=== PATIENT | female | born 1980 | race Caucasian/White ===

== ENCOUNTER 2020-05-06 12:06 | Outpatient (REF) | payer OTHER, SELFPAY ==
[2020-05-06 13:48] LABS: MANUAL DIFF FLAG NO
[2020-05-06 13:57] LABS: Basophils Percent Auto 0.6 % (0-2); Eosinophils Percent Auto 0.4 % (0-4); Hemoglobin 13.6 g/dl (12.0-16.0); Imm Gran Abs Auto 0.03 X10*3/uL (0.00-0.03); Imm Gran Pct Auto 0.4 % (0.0-0.4); Lymphocytes Absolute Auto 1.9 X10*3/uL (1.2-4.9); Lymphocytes Percent Auto 27.1 % (20-40); Mean Corpuscular HGB Conc 32.4 g/dl (31.0-35.0); Mean Corpuscular Hemoglobin 30.9 pg (27.0-33.0); Mean Corpuscular Volume 95.5 fL (80-98); Mean Platelet Volume 10.6 fL (9.4-12.3); Monocytes Absolute Auto 0.4 X10*3/uL (0.1-1.2); Monocytes Percent Auto 6.3 % (2-11); Neutrophils Absolute Auto 4.5 X10*3/uL (2.0-8.3); Neutrophils Percent Auto 65.2 % (45-73); Platelet Count 252 X10*3/uL (160-400); Red Cell Distribution Width 12.4 % (11.0-16.0); White Blood Count 6.9 X10*3/uL (4.8-10.8)
[2020-05-06 14:40] LABS: Alanine Aminotransferase 17 U/L (0-31); Albumin Level 4.6 g/dL (3.5-5.0); Alkaline Phosphatase 46 U/L (39-117); Anion Gap 13 (12-20); Aspartate Amino Transferase 20 U/L (5-31); Bilirubin Total 0.6 mg/dL (0.0-1.0); Blood Urea Nitrogen 19 mg/dL (9-16); C Reactive Protein < 0.02 mg/dL (< or = 0.50); Calcium 9.1 mg/dL (8.4-10.2); Carbon Dioxide 27 mmol/L (22-29); Chloride 104 mmol/L (96-108); Estimated Glomerular Filt Rate > 60; Glucose Random 86 mg/dL (60-115); Potassium 4.7 mmol/l (3.3-5.1); Sodium 139 mmol/L (135-145); Total Protein 7.4 g/dL (6.5-8.0)
[2020-05-06 15:15] LABS: Erythrocyte Sedimentation Rate 2 MM/HR (0-20)
== END 2020-05-06 12:07 | disposition home or self-care (01) ==
LOC: HO.LAB 12:06
PROVIDERS: PCP Internal Medicine; Visit Provider Student in an Organized Health Care Education/Training Program
DX: M45.9 Ankylosing spondylitis of unspecified sites in spine (principal); I73.00 Raynaud's syndrome without gangrene
CPT/HCPCS: 36415; 80053; 85025; 85652; 86140

== ENCOUNTER → 2020-07-23 11:01 | Outpatient (BNVA) | payer OTHER, SELFPAY | PROVIDERS: PCP Internal Medicine; Referring Provider Internal Medicine; Visit Provider Student in an Organized Health Care Education/Training Program | DX: Z76.89 Persons encountering health services in other specified circumstances (principal) ==

== ENCOUNTER 2020-08-02 11:55 | Outpatient (REF) | payer OTHER, SELFPAY ==
--- NOTE | 2020-08-02 11:57 | MR_ITS ---
EXAMINATION: MR CERVICAL SPINE WITHOUT CONTRAST CLINICAL INFORMATION: Ankylosing spondylitis. Self-reported bilateral arm pain COMPARISON: Cervical spine radiographs 03/20/2020. MRI pelvis 11/06/2019. MRI brain 05/07/2015. TECHNIQUE: MRI of the cervical spine was obtained using routine sequences without contrast. FINDINGS: VERTEBRAL BODIES AND PARASPINAL SOFT TISSUES: Mild straightening of the normal cervical lordosis is noted. Vertebral body height and marrow signal are within normal limits aside from minimal anterior endplate discogenic marrow signal changes related to mild anterior endplate osteophytosis. Mild mucosal thickening and retained secretions within the sphenoid sinus are partially visualized. CERVICOMEDULLARY JUNCTION AND VISUALIZED POSTERIOR FOSSA: Normal. SPINAL LEVELS: C2-C3: Normal. Normal intervertebral discs. No central or foraminal stenoses. C3-C4: No significant central or foraminal stenoses. Minimal central disc protrusion. C4-C5: No significant central or foraminal stenoses. Minimal central disc protrusion. C5-C6: Mild central stenosis secondary to mild central disc-osteophyte complex with mild effacement of the ventral thecal sac CSF space. No significant foraminal stenoses. C6-C7: Mild central stenosis secondary to a mild posterior broad-based disc-osteophyte complex partially effacing the ventral thecal sac CSF space. No significant foraminal stenoses. C7-T1: Normal. Normal intervertebral disc. No central or foraminal stenoses. MR/MR cervical spine wo con IMPRESSION: 1. Mild multilevel chronic spondylosis of the cervical spine without associated nerve root impingement or significant central or foraminal stenoses. 2. No specific evidence of inflammatory arthropathy of the cervical spine.
== END 2020-08-02 11:56 | disposition home or self-care (01) ==
LOC: HO.MRI 11:55
PROVIDERS: Visit Provider Student in an Organized Health Care Education/Training Program
DX: M45.9 Ankylosing spondylitis of unspecified sites in spine (principal)
CPT/HCPCS: 72141

== ENCOUNTER 2020-08-27 09:52 | Outpatient (RCR) | payer OTHER, SELFPAY ==
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
--- NOTE | 2020-11-28 14:47 | MHC.PT.DC ---
[facility] [place] Office [place] Office [place] Office [address] Rafi Lea 140 [facility] [phone] F: [phone] F: [phone] F: [phone] F: [phone] Physical Therapy Discharge Report Diagnosis: This is a 40 yo female presenting to skilled PT with a script for cervicalgia. Date of Surgery: Date of Evaluation: 08/27/20 Date of Discharge: 08/30/20 Treatments to Date: 1 Cancellations to Date: 0 No Shows to Date: 0 Discharge Status: Patient Elected to Stop Discharge Summary: Pt elected not to pursue further appointments at this time. Electronically signed by: Mando Denise PT Please sign and return to therapist. Thank you for your referral.
== END 2020-11-28 15:01 | disposition home or self-care (01) ==
LOC: HO.PTCHIC 09:52
PROVIDERS: PCP Internal Medicine; Visit Provider Student in an Organized Health Care Education/Training Program
DX: M54.2 Cervicalgia (principal)
CPT/HCPCS: 97110; 97162

== ENCOUNTER 2020-10-22 12:24 | Outpatient (REF) | payer OTHER, SELFPAY | END 2020-10-22 12:25 | disposition home or self-care (01) | LOC: HO.LAB 12:24 | PROVIDERS: PCP Internal Medicine; Visit Provider Student in an Organized Health Care Education/Training Program | DX: Z13.89 Encounter for screening for other disorder (principal) ==

== ENCOUNTER 2020-11-04 11:55 | Outpatient (REF) | payer OTHER, SELFPAY ==
[2020-11-04 12:34] LABS: MANUAL DIFF FLAG NO
[2020-11-04 12:44] LABS: Basophils Absolute Auto 0.1 X10*3/uL (0.0-0.2); Basophils Percent Auto 0.7 % (0-2); Eosinophils Absolute Auto 0.1 X10*3/uL (0.0-0.4); Eosinophils Percent Auto 1.5 % (0-4); Hematocrit 37.9 % (37-47); Hemoglobin 12.5 g/dl (12.0-16.0); Imm Gran Abs Auto 0.01 X10*3/uL (0.00-0.03); Imm Gran Pct Auto 0.1 % (0.0-0.4); Lymphocytes Percent Auto 28.2 % (20-40); Mean Corpuscular Hemoglobin 31.4 pg (27.0-33.0); Mean Corpuscular Volume 95.2 fL (80-98); Mean Platelet Volume 10.4 fL (9.4-12.3); Monocytes Absolute Auto 0.6 X10*3/uL (0.1-1.2); Monocytes Percent Auto 7.9 % (2-11); Neutrophils Absolute Auto 4.4 X10*3/uL (2.0-8.3); Neutrophils Percent Auto 61.6 % (45-73); Platelet Count 239 X10*3/uL (160-400); Red Blood Count 3.98 X10*6/uL (4.20-5.50); Red Cell Distribution Width 12.4 % (11.0-16.0); White Blood Count 7.1 X10*3/uL (4.8-10.8)
[2020-11-04 13:01] LABS: Alanine Aminotransferase 20 U/L (0-31); Albumin Level 4.3 g/dL (3.5-5.0); Alkaline Phosphatase 47 U/L (39-117); Anion Gap 13 (12-20); Aspartate Amino Transferase 20 U/L (5-31); Bilirubin Total 0.7 mg/dL (0.0-1.0); Blood Urea Nitrogen 12 mg/dL (9-16); C Reactive Protein < 0.02 mg/dL (< or = 0.50); Carbon Dioxide 26 mmol/L (22-29); Chloride 104 mmol/L (96-108); Estimated Glomerular Filt Rate > 60; Glucose Random 89 mg/dL (60-115); Potassium 4.5 mmol/L (3.3-5.1); Sodium 138 mmol/L (135-145); Total Protein 6.6 g/dL (6.5-8.0)
[2020-11-04 13:33] LABS: Erythrocyte Sedimentation Rate 2 MM/HR (0-20)
== END 2020-11-04 11:56 | disposition home or self-care (01) ==
LOC: HO.LAB 11:55
PROVIDERS: PCP Internal Medicine; Visit Provider Student in an Organized Health Care Education/Training Program
DX: M45.9 Ankylosing spondylitis of unspecified sites in spine (principal)
CPT/HCPCS: 36415; 80053; 85025; 85652; 86140

== ENCOUNTER 2021-05-29 17:00 | Outpatient (RCR) | payer OTHER, SELFPAY ==
--- NOTE | 2021-01-01 17:20 | MHC.PT.EP ---
[facility] [place] Office [place] Office [place] Office [address] [phone] F: [phone] F: [phone] F: [phone] F: [phone] Physical Therapy Plan of Care Date of Evaluation: Date of Surgery: Diagnosis: Cervicalgia. Assessment: Pt is a 40 y/o female with ankylosing spondylosis referred to PT for eval and treat of cervical who presents with signs and Sx consistent with Dx resulting in decreased tolerance for reading, driving as well as disturbed sleep, and frequent WIGGINS secondary to decreased posture, decreased cervical strength, increased accessory tissue tension, decreased cervical ROM, and pain. Pt is deemed an appropriate candidate to receive skilled PT in order to address her physical limitations to improve her functional ability. Frequency and Duration: The patient will be seen 2 x / wk x 5 wks. Short Term Goals: initiate HEP with evidence of compliance. Improve baseline pain with activity to < 5/10 initial 7-8/10. Senior Living Goals: I with HEP. Pt will improve her restless sleep d/t pain by 50%. Pt will improve Deep Neck Flexor endurance from 5 seconds to > 20 seconds. Pt will report at most only slight pain with driving; initial moderate pain. Treatment Plan: Modalities to reduce pain, spasms and effusion. Manual therapy to restore motion and function. Therapeutic exercise to improve strength and flexibility. Neuromuscular re-education for posture and balance. Therapeutic activities to return to functional activities of daily living. Electronically signed by: Lamont Turpin PT. Please sign and return to therapist. Thank you for your referral.
--- NOTE | 2021-07-14 09:52 | MHC.PT.OD ---
[facility] [place] Office [place] Office [place] Office [address] Rafi Lea [address] [phone] F: [phone] F: [phone] F: [phone] F: [phone] Physical Therapy Daily Note Diagnosis: Cervicalgia. Date of Surgery: Date of Evaluation: 12/18/20 Date of Treatment: 05/29/21 Treatments to Date: 19 Cancellations to Date: No Shows to Date: Authorized Visits: Insurance End Date: Precautions/ Contraindications: Subjective: Pt reported some c/s stiffness and achy L/S pain Pain Score and Location: 8 c/s Objective Flowsheet: Tests & Measures C-Spine ROM: flex 45 deg ext 30 deg SB: R 40 deg; L 25 deg Rot: R 61 deg; L 53 deg DNF - 5 sec - reports feeling unstable Increased tissue tension noted L > R UT, MT and B suboccipitals. Exercises UB x 10 min level 2 5/5 Chin tucks x 10 x2 reps; rows, sh ext x 30 reps ea G TB Supine LTRS over PBALL: x 30. HSS regular and lateral x 30 sec x 3 ea. PT noted Pt using trunk flexion to retrieve items from floor. initiated lifting training ideas. STM, TPR UT, SCM, scalenes, rhomboid muscle R HS 50 degrees, R PSIS inf, ASIS sup, hypo, R post rotated, squish R, R L.E shorter supine. R hip weakness. Reviewed anatomy of L/S, taped R post rotation into ant Modalities ES 4 channel UT, Rhomboid muscles in sitting MH 10.5 intensity Assessment: Annabel has made some improvement in her functional ability and has gained some skills to help manage her chronic pain and has performed her program with good carryover. She has been educated further on her chronic progressive arthritic disease and on continuing her HEP in a pain limited capacity to her tolerance. PT Plan: DC in 1-2 visits: Streamline HEP Short Term Goals: initiate HEP with evidence of compliance. Improve baseline pain with activity to < 5/10 initial 7-8/10. Fdc Goals: I with HEP. Pt will improve her restless sleep d/t pain by 50%. Pt will improve Deep Neck Flexor endurance from 5 seconds to > 20 seconds. Pt will report at most only slight pain with driving; initial moderate pain. Electronically signed by: Lili Harden skiver hand
== END 2021-07-14 09:53 | disposition home or self-care (01) ==
LOC: HO.PTCHIC 17:00
PROVIDERS: PCP Internal Medicine; Visit Provider Student in an Organized Health Care Education/Training Program
DX: M54.2 Cervicalgia (principal)
CPT/HCPCS: 97014; 97110; 97140; 97162

== ENCOUNTER 2023-07-01 12:51 | Outpatient (AMB) | payer BC, SELFPAY ==
[2023-07-01 12:53] VITALS: BP 96/64; PULSE 69; O2SAT 99; BMI 18.9
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
== END 2023-07-01 13:55 | disposition home or self-care (01) ==
PROVIDERS: PCP Internal Medicine; Visit Provider Internal Medicine
DX: Z00.00 Encounter for general adult medical examination without abnormal findings (principal); Z92.89 Personal history of other medical treatment; M54.50 Low back pain, unspecified; G89.29 Other chronic pain
CPT/HCPCS: 99396

== ENCOUNTER 2024-10-13 11:52 | Outpatient (AMB) | payer OTHER, SELFPAY ==
[2024-10-13 11:54] VITALS: BP 102/66; PULSE 74; RESP 18; TEMP 37.1; O2SAT 97
--- NOTE | 2024-10-13 11:54 | A.OFFPC_ITS ---
Vital Signs 10/13/24 11:54 Height 5 ft 6 in Weight 124 lb BMI 20.0 BP 102/66 Blood Pressure Location Rt brachial Position Sitting Respiration 18 Pulse 74 Pulse Source Pulse Oximeter Temp 98.7 F Temp Source Oral Pulse Oximetry (%) 97 Oxygen Delivery Method Room Air Intake Visit Reasons: Annual PE Intake Note: Pt is here today for PE. Allergies adalimumab [Humira] Allergy (Unknown, Verified 10/13/24 11:59) hives etanercept [Enbrel] Allergy (Unknown, Verified 10/13/24 11:59) rash gabapentin Allergy (Unknown, Verified 10/13/24 11:59) Palpitations golimumab [Simponi] Allergy (Unknown, Verified 10/13/24 11:59) hives food sensitivities-numerous Allergy (Intermediate, Uncoded 10/13/24 11:59) rash Medication List - Last Reconciled 10/13/24 by Evelyne Hines MD multivitamin 1 tab PO DAILY Tobacco use date assessed: 10/13/24 Dental Screening Dental Screen Date: 10/13/24 Did you have a dental visit in the last 12 months?: Yes Did you have a dental problem in the last 6 months where you did not have access to dental care?: No Was dental information given to patient?: Patient has dentist HPI Annual PE HPI Details Pt presents for PE. PFSH Medical History Postherpetic neuralgia Antiphospholipid antibody positive HLA B27 positive Seasonal allergies Ankylosing spondylitis Raynauds syndrome Surgical History H/O colonoscopy History of esophagogastroduodenoscopy (EGD) Family History Father Hyperlipidemia Substance use disorder Mother Vertigo GERD (gastroesophageal reflux disease) Glaucoma Sister Substance use disorder Paternal Grandfather Colon cancer Brother No problems noted. Son No problems noted. Daughter No problems noted. Daughter No problems noted. Social History Household Members Other:: , 13 y/o twin daughters Housing: House Alcohol intake: current Alcohol intake frequency: holidays/special occasions only Patient Tobacco Use Status: Never used Tobacco e-Cigarette/Vaping Use: Currently Using Substance Use Type: Marijuana service: No Current occupational status: employed Cognitive needs: No Hearing needs: No Vision needs: Yes Questionnaire PHQ-9 Over the last 2 weeks, how often have you been bothered by any of the following problems? 1. Little interest or pleasure in doing things: not at all 2. Feeling down, depressed, or hopeless: not at all 3. Trouble falling or staying asleep, or sleeping too much: several days 4. Feeling tired or having little energy: not at all 5. Poor appetite or overeating: several days 6. Feeling bad about yourself - or that you are a failure or have let yourself or your family down: not at all 7. Trouble concentrating on things, such as reading the newspaper or watching television: several days 8. Moving or speaking so slowly that other people could have noticed. Or the opposite - being so fidgety or restless that you have been moving around a lot more than usual: several days 9. Thoughts that you would be better off or of hurting yourself in some way: not at all Total score: 4 Depression Screening Interpretation: Negative Depression Screening Done: Yes 60122 - PHQ-9 Billing: Yes Source: Developed by Drs. Noam Samuel, Smita Leary, [place] and colleagues, with an educational sarah from [employer]. Thrive Questionnaire Date Thrive assessed: 10/13/24 I am a: Patient What is your living situation today?: I have a steady place to live Within the past 12 months, did the food you bought not last and you didn't have the money to get more?: Never true Within the past 12 months, did you worry whether your food would run out before you got money to buy more?: Never true Do you have trouble paying for medicines?: No Do you have trouble getting transportation to medical appointments?: No Do you have trouble paying your heating and electricity bill?: No Do you have trouble taking care of your child, family member or friend?: No Do you have trouble with day-to-day activities such as bathing, preparing meals, shopping, managing finances, etc.?: No Are you currently unemployed and looking for a job?: Yes Are you interested in more education?: No Please select the resources that you would like help with: None Currently or been in a relationship where the following occur: I choose not to answer THRIVE Score: 0 AUDIT C Alcohol Use Questionnaire (AUDIT-C) 1. How often do you have a drink containing alcohol?: Monthly or less 2. How many drinks containing alcohol do you have on a typical day when you are drinking?: 1 or 2 3. How often do you have six or more drinks on one occasion?: Never Total Score: 1 LUIS-7 AMB Questionnaire LUIS-7 Date LUIS - 7 assessed: 10/13/24 Feeling nervous, anxious, or on edge: 1 = Several days Not being able to stop or control worryin = Several days Worrying too much about different things: 1 = Several days Trouble relaxin = Several days Being so restless that it is hard to sit still: 1 = Several days Becoming easily annoyed or irritable: 1 = Several days Feeling afraid as if something awful might happen: 1 = Several days Total LUIS-7 score (0-4 normal; 5-9 mild; 10-14 moderate; 15-21 severe): 7 Source: Developed by Drs. Noam Samuel, Smita Leary, [place] and colleagues, with an educational sarah from [employer]. LUIS-7 Assessment Billing LUIS-7 Assessment Tool: LUIS-7 Assessment 49750 Review of Systems Const All systems reviewed & are unremarkable except as noted in HPI and below Reports no additional complaints Eyes Reports no additional complaints ENT Reports no additional complaints Card Reports no additional complaints Resp Reports no additional complaints GI Reports no additional complaints Reports no additional complaints Physical exam (Primary Care) Vital Signs: Last Vital Signs Temp 98.7 F 10/13/24 11:54 Pulse 74 10/13/24 11:54 Resp 18 10/13/24 11:54 BP 102/66 10/13/24 11:54 Pulse Ox 97 10/13/24 11:54 Oxygen Delivery Method Room Air 10/13/24 11:54 BMI result Body Mass Index 20.0 Tobacco/Smoking Status: Tobacco use Status Tobacco use date assessed 10/13/24 10/13/24 12:07 Patient Tobacco Use Status Never used Tobacco 10/13/24 12:07 e-Cigarette/Vaping Use Currently Using 10/13/24 11:55 PHQ-9: PHQ-9 Score PHQ-9: Total score 4 10/13/24 12:32 Depression Screening Interpretation: Negative Thrive Assessment: Date of Thrive Assessment Date Thrive assessed 10/13/24 10/13/24 12:07 Currently or been in a relationship where the following occur: I choose not to answer Const General: no acute distress HENMT Head: Yes normal to inspection General nose exam: Normal external nose present Face and sinus: Yes normal facial exam Throat: Yes posterior oropharynx normal Eyes General: appearance normal, both eyes and all related structures Neck Neck: Yes no lymphadenopathy and Yes supple Resp Effort & Inspection: normal respiratory effort Auscultation: clear to auscultation bilaterally Cardio Rhythm: regular rhythm Heart sounds: S1 normal heart sound present and S2 normal heart sound present GI Inspection: Yes normal to inspection Palpation (GI): Soft to palpation Percussion: Yes normal to percussion Auscultation: normal bowel sounds Coding Level of Care Code Est Pt Prev Care 40-64y(61720) Diagnoses Annual physical exam Z00.00 Additional Codes LUIS-7 Assessment Billing - LUIS-7 Assessment Tool: LUIS-7 Assessment 99341 ( [id number]) PHQ-9 - 94317 - PHQ-9 Billing: Yes ([id number]) Assessment & Plan Assessment & Plan (1) Annual physical exam: Code(s): Z00.00 - Encounter for general adult medical examination without abnormal findings Category: Medical Plan: well balanced diet, exercise, discussed with the pt. she will schedule office visit with new vp biology. She is up-to-date with the mammogram. Patient had colonoscopy in 2018 and was told she needs a repeat colonoscopy in 5 years. There is no report available. Patient will be referred to GI to discuss screening colonoscopy Orders: Orders Vitamin D 25-OH Total Today Z00.00 - Encounter for general adult medical examination without abnormal findings UA w Microscopic Today Z00.00 - Encounter for general adult medical examination without abnormal findings Comprehensive Morgan. Panel Fast Today Z00.00 - Encounter for general adult medical examination without abnormal findings Complete Blood Count Auto Diff Today Z00.00 - Encounter for general adult medical examination without abnormal findings Lipid Panel Today Z00.00 - Encounter for general adult medical examination without abnormal findings TSH reflex Free T4 Today Z00.00 - Encounter for general adult medical examination without abnormal findings Referrals Gastroenterology Referral Z00.00 - Encounter for general adult medical examination without abnormal findings
== END 2024-10-13 12:47 | disposition home or self-care (01) ==
PROVIDERS: PCP Internal Medicine; Visit Provider Internal Medicine
DX: Z00.00 Encounter for general adult medical examination without abnormal findings (principal)

== ENCOUNTER → 2024-10-13 11:52 | Outpatient (BNVA) | payer OTHER, SELFPAY | PROVIDERS: PCP Internal Medicine; Visit Provider Internal Medicine | DX: Z00.00 Encounter for general adult medical examination without abnormal findings (principal) | CPT/HCPCS: 96127; 99396 ==